=== PATIENT | male | born 1940 | race Caucasian/White ===

== ENCOUNTER → 2016-10-13 | Day surgery (SDC) | payer MEDICARE, BC ==
--- NOTE | 2016-10-09 16:06 | Pre-Procedure Note/Attestation ---
Pre-Procedure Note/Attestation Complete Prior to Procedure Planned Procedure: right Procedure Narrative: 1.CATARACT EXTRACTION WITH PHACO AND PC IOL IMPLANTATION, RIGHT EYE. 2.LIMBAL RELAXING INCISION (LRI), RIGHT EYE. I Indications for Procedure Pre-Operative Diagnosis: 1. CATARACT, RIGHT EYE. 2.ASTIGMATISM, RIGHT EYE. Attestation I attest that I discussed the nature of the procedure; its benefits; risks and complications; and alternatives (and the risks and benefits of such alternatives ), prior to the procedure, with the patient (or the patient's legal telemarketing representative). I attest that, if there was a reasonable possibility of needing a blood transfusion, the patient (or the patient's legal telemarketing representative) was given the [place] Department of Health Services standardized written summary, pursuant to the Lino Aubrey Blood Safety Act ([place] Health and Safety Code # 1645, as amended). I attest that I re-evaluated the patient just prior to the surgery and that there has been no change in the patient's H&P, except as documented below: MINH BRIAN Oct 09, 2016 16:06
[2016-10-13] VITALS (8 sets, daily range): BP systolic 102–128; BP diastolic 53–74
[~2016-10-13] VITALS: Ht 172.7 cm; Wt 68.0 kg
[~2016-10-13] MED LIST: ASPIRIN81 MG ORAL; Akten 3.5% 1ml Btl ONE; BONIVA150 MG ORAL; BSS 15ml BTL ONE; BSS 500ml btl ONE; CRESTOR10 M2 ORAL; Carbachol 0.01% Op Soln 1.5ml vial ONE; Dexamethasone 4mg/ml vial ONE; Diclofenac Sod 0.1% Op Soln ONE; DiphenhydrAMINE 50mg/ml Inj IVP PRN; EPINEPHrine 1mg/1ml Amp ONE; Gatifloxacin Opth Solution 0.5% ONE; LR 1000ml 1,000 ML IVLG SCH; LR 1000ml ONE; Lidocaine 1% MPF 10mg/ml 5ml ONE; Midazolam 2mg/2ml Inj ONE; NS Irrig 1000ml ONE; Phenylephrine 10% Opth Soln 5ml ONE; Povidone-Iodine 5% opth solution ONE; Propofol 10mg/ml 20ml IV ONE; Sodium Hyaluronate 10 mg/ml 0.85ml ONE; Sterile Water Irrig 1000ml IRRIG ONE; Tetracaine 0.5% Opth Soln ONE; Tropicamide 1% Opth Soln ONE; acetaZOLAMIDE 125mg tab ORAL ONE; fentaNYL 100 mcg/2 mL IV ONE; fentaNYL 100 mcg/2 mL IV PRN
[2016-10-13] MEDS: Tropicamide 1% Opth Soln RIGHT EYE SCH ×3 (06:52→07:11)
[2016-10-13] MEDS: Akten 3.5% 1ml Btl RIGHT EYE SCH ×3 (06:52→07:10)
[2016-10-13] MEDS: Diclofenac Sod 0.1% Op Soln RIGHT EYE SCH ×3 (06:52→07:10)
[2016-10-13] MEDS: Phenylephrine 10% Opth Soln 5ml RIGHT EYE SCH ×3 (06:53→07:11)
[2016-10-13] MEDS: Gatifloxacin Opth Solution 0.5% RIGHT EYE SCH ×3 (06:53→07:11)
--- NOTE | 2016-10-13 08:43 | Anethesia Preoperative Eval ---
Anesthesia Pre-op PMH/ROS General Date of Evaluation: Oct 13, 2016 Time of Evaluation: 08:22 Anesthesiologist: Ramón ASA Score: ASA 2 Mallampati Score Class I : Soft palate, uvula, fauces, pillars visible Class II: Soft palate, uvula, fauces visible Class III: Soft palate, base of uvula visible Class IV: Only hard plate visible Mallampati Classification: Class II Surgeon: Bell Diagnosis: R eye cataract Surgical Procedure: R eye cataractextraction Anesthesia History: none Family History: no anesthesia problems Allergies: Coded Allergies: No Known Allergies (Unverified , 10/09/16) Medications: see eMAR Past Medical History Cardiovascular: Reports: HTN - mild, Denies: CAD, [place], arrhythmia, other, valve dz Pulmonary: Denies: COPD, CHAR, asthma, other Gastrointestinal/Genitourinary: Reports: GERD, Denies: CRI, ESRD, other Neurologic/Psychiatric: Denies: CVA, TIA, dementia, depression/anxiety, other Endocrine: Denies: DM, hypothyroidism, other, steroids HEENT: Reports: cataract (L), cataract (R) Hematology/Immune: Denies: DVT, anemia, bleeding disorder, other Musculoskeletal/Integumentary: Denies: DDD, DJD, OA, RA, edema, other PMH Narrative: as above PSxH Narrative: nne Anesthesia Pre-op Phys. Exam Physician Exam Last Vital Signs Date Time Temp Pulse Resp B/P Pulse Ox O2 Delivery O2 Flow Rate FiO2 10/13/16 07:06 98.1 66 20 128/74 99 Room Air Constitutional: NAD Neurologic: CN 2-12 intact Cardiovascular: RRR, no M/R/G Respiratory: CTA Gastrointestinal: S/NT/ND Airway Exam Mallampati Score: Class II MO: limited Neck: stiff ROM: limited Teeth: missing Dentures: no lower, no upper Anesthesia Pre-op A/P Labs see chart Studies Pre-op Studies: EKG - NSR Risk Assessment & Plan Assessment: ASA 2 Plan: MAC Status Change Before Surgery: No Pre-Antibiotics Drug: none REMBERTO WILLS M.D. Oct 13, 2016 08:43
--- NOTE | 2016-10-13 09:10 | Brief Operative Note ---
Immediate Post Operative Note Operative Note Chief Complaint: Blurry vision, right eye, difficulty driving and reading, right eye Pre-op Diagnosis: 1. CATARACT, RIGHT EYE. 2.ASTIGMATISM, RIGHT EYE. Procedure: 1- Cataract extraction with phaco and PC IOL implantation, right eye 2- Limbal relaxing incision, right eye Post-op Diagnosis: same as pre-op Surgeon: Minh Luu MD Carburetor Rebuilder: None Additional Surgeons: None Anesthesiologist: Dr. barone Anesthesia: MAC Specimen: none Complications: none Condition: stable Estimated Blood Loss: none Drains: none Implant(s) used?: Yes - Monofocal PC IOL implanted in the right eye without complication MINH LUU Oct 13, 2016 09:10
--- NOTE | 2016-10-13 09:53 | Immediate Post-Op Evaluation ---
Immediate Post-Op Evalulation Immediate Post-Op Evalulation Procedure: R eye cataract extraction wit IOL Date of Evaluation: Oct 13, 2016 Time of Evaluation: 09:08 IV Fluids: 300 Blood Products: none Estimated Blood Loss: none Urinary Output: none Blood Pressure Systolic: 108 Blood Pressure Diastolic: 58 Pulse Rate: 62 Respiratory Rate: 20 O2 Sat by Pulse Oximetry: 99 Temperature (Fahrenheit): 97.4 Pain Score (1-10): 1 Nausea: No Vomiting: No Complications none Patient Status: awake, patent, none Hydration Status: adequate REMBERTO WILLS M.D. Oct 13, 2016 09:53
--- NOTE | 2016-10-13 09:54 | 48 Hour Post Anesthesia Eval ---
Post Anesthesia Evaluation Procedure: R eye cataract extraction wit IOL Date of Evaluation: Oct 13, 2016 Time of Evaluation: 09:53 Blood Pressure Systolic: 112 0: 72 Pulse Rate: 68 Respiratory Rate: 20 Temperature (Fahrenheit): 97.6 O2 Sat by Pulse Oximetry: 98 Airway: patent Nausea: No Vomiting: No Pain Intensity: 1 Hydration Status: adequate Cardiopulmonary Status: stable Mental Status/LOC: patient returned to baseline Follow-up Care/Observations: n/a Post-Anesthesia Complications: none Follow-up care needed: ready to discharge REMBERTO WILLS M.D. Oct 13, 2016 09:54
--- NOTE | 2016-10-14 00:27 | Operative Note - Dictated ---
DATE OF OPERATION: 10/13/2016 FACILITY: [facility]. SURGEON: Yong Luu M.D. GMAT INSTRUCTOR: None. ANESTHESIOLOGIST: Pankaj Melgar M.D. ANESTHESIA: Monitored anesthesia care (MAC). PREOPERATIVE DIAGNOSES: 1. Cataract, right eye. 2. Astigmatism in the right eye. POSTOPERATIVE DIAGNOSES: 1. Cataract, right eye. 2. Astigmatism in the right eye. SURGERY PERFORMED: 1. Cataract extraction with phacoemulsification of the posterior chamber intraocular lens implantation in the right eye. 2. Limbal relaxing incision (LRI). INDICATION FOR SURGERY AND FINDINGS: The patient is a 75-year-old gentleman with history of osteoarthritis, otherwise he does not have any allergy to medications. He is not allergic to medications. He is taking one naproxen for . He is complaining of blurred vision in the right eye. On examination of the right eye, the cornea is clear, anterior chamber is clean and quiet, pupillary reflexes normal, and there is no RAPD. There is 4+ nuclear sclerosis and 2+ cortical cataract. The funduscopy shows normal macula, normal optic disc, and periphery retina is within normal limits. To improve the vision in the right eye, the cataract has to be removed and posterior chamber intraocular lens has to be implanted. Astigmatism has to addressed with limbal relaxing incision. INFORMED CONSENT: The nature of the surgery, risks, benefits, alternatives, and potential complications were explained in detail to the patient in her language, Farsi. Therefore, the potential complications including, but not limited to bleeding, infection, posterior capsular rupture, lens subluxation, flat anterior chamber, iris prolapse, corneal edema, macular edema, wound leak, retinal detachment, endophthalmitis, uveitis, loss of vision, and even loss of the left eye were all explained in detail to the patient. The patient voiced understanding and accepted all the complications. The alternatives including accommodating lenses, multifocal lenses, toric lens, and conventional cataract surgery with limbal relaxing incision for treatment of astigmatism were all explained in detail to the patient. The patient voiced understanding. Then, he signed the consent form, which is in the chart. DESCRIPTION OF SURGERY AND FINDINGS: Following that, the patient was taken to the operation room in a stable condition. Lidocaine gel Akten 3.5% were applied to the conjunctiva of the right eye. Intravenous sedation was given by the anesthesiologist, Dr. Melgar. After adequate anesthesia and sedation had been achieved, the right eye was prepped and draped in the sterile fashion for intraocular surgery. Following that, a speculum was placed in the right eye. Before the patient was taken to the operation room, the eye was marked at 180 and 90 meridian. In the operation room, using a corneal marker and a marking pen, the steep meridian of the cornea was marked. Following that, using a bobby knife with 600 micron blade, two parallel incisions were made on the steep meridian of the cornea to treat the astigmatism. Following that, using a Super Sharp knife, a clear corneal side port was created. A 1% lidocaine without preservative (MPF) was injected into the anterior chamber. The viscoelastic agent, Healon was injected into the anterior chamber as well. Following that, a clear corneal temporal keratotomy was performed using a 2.8 mm keratome. Following that, Vision Blue was injected under the viscoelastic agent to stain the anterior capsule of the lens. Following that, clear fresh viscoelastic agent, Healon was injected into the anterior chamber again. Under the fresh clear viscoelastic agent, an anterior capsulotomy was performed in the fashion of capsulorrhexis beautifully. Following that, the whole viscoelastic agent was removed from the anterior chamber. Following that, using balanced salt solution, hydrodissection and hydrodelineation was performed and the nucleus was freed. Following that, the clear fresh viscoelastic agent was injected into the anterior chamber to protect the endothelium of the cornea. Following that, using the phacoemulsification machine in the fashion of horizontal chop, the nucleus was removed in toto. Following that, using irrigation and aspiration unit, cortical material was removed from the capsular bag and the capsular bag was polished. Following that, the capsular bag was filled with viscoelastic agent, Healon. Following that, the +21.5 diopter ZCB00 foldable PCIOL with serial number [id number] injected into the capsular bag. Using a Sinskey hook, the lens was manipulated within the proper position. Following that, the viscoelastic agent was removed from the anterior and posterior part of the lens. Following that, the anterior chamber was filled with balanced salt solution and the wound was hydrated with balanced salt solution. The wound was checked for leakage and there was no leakage. Vigamox eye drops were applied to the conjunctiva of the right eye. The patient tolerated the surgery without complications. At the end of the surgery, the eye was patched with a clear sterile fenestrated shield. Following that, the patient was transferred to the recovery room. In the recovery room, 125 mg of Diamox was given by mouth stat. Postoperative orders and directions were given to the patient. The patient will be discharged home upon stabilization. The patient will be followed in my office tomorrow morning at 9 a. Yong Luu M.D. DR: JODIE JOB#: [id number] CC:
--- NOTE | 2016-10-14 01:17 | Discharge Summary ---
DATE OF ADMISSION: 10/13/2016 DATE OF DISCHARGE: 10/13/2016 REASON FOR HOSPITALIZATION: 1. Cataract right eye. 2. Astigmatism, right eye. SURGERY PERFORMED: 1. Cataract extraction with phacoemulsification and posterior chamber intraocular lens implantation in the right eye. 2. Limbal relaxing incision (LRI) in the right eye. The patient's condition in the hospital, the patient tolerated the surgery without complications. DISCHARGE CONDITION: The patient was stable at discharge. DISCHARGE MEDICATIONS: 1. Prednisolone 1% q.i.d., right eye. 2. Vigamox eye drops one drop q.i.d., right eye. 3. Ilevro eye drops one drop q.i.d., right eye. POSTOPERATIVE ORDERS: The patient has to rest at home, no bending, no lifting. No watching TV tonight. POSTOPERATIVE FOLLOWUP: The patient will be followed in my office tomorrow morning at 9 a.m[address] Yong Luu M.D. DR: JODIE JOB#: [id number] CC:
== END | disposition home or self-care (01) ==
LOC: SUR 06:13
DX: H25.11 Age-related nuclear cataract, right eye (principal); H25.011 Cortical age-related cataract, right eye; H52.201 Unspecified astigmatism, right eye; I10 Essential (primary) hypertension; K21.9 Gastro-esophageal reflux disease without esophagitis; M19.90 Unspecified osteoarthritis, unspecified site
CPT/HCPCS: 66984; 66999; J0171; J1100; J2250; J2704; J3010; J7120; V2632; 94003; 94150

== ENCOUNTER → 2016-10-27 | Day surgery (SDC) | payer MEDICARE, BC ==
--- NOTE | 2016-10-23 14:35 | Pre-Procedure Note/Attestation ---
Pre-Procedure Note/Attestation Complete Prior to Procedure Planned Procedure: left Procedure Narrative: 1.CATARACT EXTRACTION WITH PHACO AND PC IOL IMPLANTATION, LEFT EYE. 2.LIMBAL RELAXING INCISION (LRI), LEFT EYE. I Indications for Procedure Pre-Operative Diagnosis: 1. CATARACT, LEFT EYE. 2.ASTIGMATISM, LEFT EYE. Attestation I attest that I discussed the nature of the procedure; its benefits; risks and complications; and alternatives (and the risks and benefits of such alternatives ), prior to the procedure, with the patient (or the patient's legal call center support representative). I attest that, if there was a reasonable possibility of needing a blood transfusion, the patient (or the patient's legal call center support representative) was given the [place] Department of Health Services standardized written summary, pursuant to the Lino Aubrey Blood Safety Act ([place] Health and Safety Code # 1645, as amended). I attest that I re-evaluated the patient just prior to the surgery and that there has been no change in the patient's H&P, except as documented below: MINH BRIAN Oct 23, 2016 14:35
[2016-10-27] VITALS (10 sets, daily range): BP systolic 107–139; BP diastolic 53–75
[~2016-10-27] VITALS: Ht 177.8 cm; Wt 61.2 kg
[~2016-10-27] MED LIST changes: -Carbachol 0.01% Op Soln 1.5ml vial ONE; +DiphenhydrAMINE 50mg/ml Inj ONE; +Labetalol 5mg/ml 20ml vial IV PRN; -Propofol 10mg/ml 20ml IV ONE; -Tetracaine 0.5% Opth Soln ONE; -fentaNYL 100 mcg/2 mL IV PRN
[2016-10-27] MEDS: Akten 3.5% 1ml Btl LEFT EYE SCH ×3 (06:16→06:29)
[2016-10-27] MEDS: Phenylephrine 10% Opth Soln 5ml LEFT EYE SCH ×3 (06:16→06:29)
[2016-10-27] MEDS: Tropicamide 1% Opth Soln LEFT EYE SCH ×3 (06:16→06:29)
[2016-10-27] MEDS: Diclofenac Sod 0.1% Op Soln LEFT EYE SCH ×3 (06:16→06:29)
[2016-10-27] MEDS: Gatifloxacin Opth Solution 0.5% LEFT EYE SCH ×3 (06:16→06:29)
--- NOTE | 2016-10-27 07:26 | Anethesia Preoperative Eval ---
Anesthesia Pre-op PMH/ROS General Date of Evaluation: Oct 27, 2016 Anesthesiologist: Rashawn ASA Score: ASA 2 Mallampati Score Class I : Soft palate, uvula, fauces, pillars visible Class II: Soft palate, uvula, fauces visible Class III: Soft palate, base of uvula visible Class IV: Only hard plate visible Mallampati Classification: Class II Surgeon: Bell Diagnosis: Left cataract Surgical Procedure: Left cataract extraction with IOL Anesthesia History: none Family History: no anesthesia problems Allergies: Coded Allergies: No Known Allergies (Unverified , 10/09/16) Medications: see eMAR Past Medical History Cardiovascular: Reports: HTN, Denies: CAD, [place], arrhythmia, other, valve dz Pulmonary: Denies: COPD, CHAR, asthma, other Gastrointestinal/Genitourinary: Reports: GERD, Denies: CRI, ESRD, other Neurologic/Psychiatric: Denies: CVA, TIA, dementia, depression/anxiety, other Endocrine: Denies: DM, hypothyroidism, other, steroids HEENT: Denies: [place] (L), [place] (R), cataract (L), cataract (R), glaucoma, other Hematology/Immune: Denies: DVT, anemia, bleeding disorder, other Musculoskeletal/Integumentary: Denies: DDD, DJD, OA, RA, edema, other PSxH Narrative: right cataract Anesthesia Pre-op Phys. Exam Physician Exam Last Vital Signs Date Time Temp Pulse Resp B/P Pulse Ox O2 Delivery O2 Flow Rate FiO2 10/27/16 06:25 98.1 66 18 136/65 99 Room Air Constitutional: NAD Cardiovascular: RRR Respiratory: CTA Airway Exam Mallampati Score: Class II Anesthesia Pre-op A/P Labs see chart Studies Pre-op Studies: EKG - sr Risk Assessment & Plan Assessment: ASA II Plan: MAC Status Change Before Surgery: No Pre-Antibiotics Drug: N/A SARKIS LATHAM M.D. Oct 27, 2016 07:26
--- NOTE | 2016-10-27 08:07 | Immediate Post-Op Evaluation ---
Immediate Post-Op Evalulation Immediate Post-Op Evalulation Procedure: Left cataract extraction with IOL Date of Evaluation: Oct 27, 2016 Time of Evaluation: 08:32 IV Fluids: 300 Blood Products: 0 Estimated Blood Loss: 0 Urinary Output: 0 Blood Pressure Systolic: 124 Blood Pressure Diastolic: 65 Pulse Rate: 54 Respiratory Rate: 16 O2 Sat by Pulse Oximetry: 100 Temperature (Fahrenheit): 97.6 Pain Score (1-10): 0 Nausea: No Vomiting: No Complications 0 Patient Status: awake, reacts, patent, none Hydration Status: adequate Drug: N/A SARKIS LATHAM M.D. Oct 27, 2016 08:07
--- NOTE | 2016-10-27 08:07 | 48 Hour Post Anesthesia Eval ---
Post Anesthesia Evaluation Procedure: Left cataract extraction with IOL Date of Evaluation: Oct 27, 2016 Blood Pressure Systolic: 129 0: 69 Pulse Rate: 56 Respiratory Rate: 16 O2 Sat by Pulse Oximetry: 100 Airway: patent Nausea: No Vomiting: No Pain Intensity: 0 Hydration Status: adequate Cardiopulmonary Status: at baseline Mental Status/LOC: patient returned to baseline Post-Anesthesia Complications: 0 Follow-up care needed: ready to discharge SARKIS LATHAM M.D. Oct 27, 2016 08:07
--- NOTE | 2016-10-27 08:17 | Pre-op HX & Phy Repo 2 SIG ---
DATE OF ADMISSION: 10/27/2016 PRESURGICAL INTERNAL MEDICINE HISTORY AND PHYSICAL REASON FOR EVALUATION: I was asked by Dr. Yong Luu to see this 75-year-old male, who is going for elective surgery on the left eye. The patient has a cataract left eye. Please see full Ophthalmology description History and Physical by Dr. Yong Luu. The patient was examined and chart was reviewed. PAST MEDICAL HISTORY/REVIEW OF SYSTEMS: Remarkable for osteoporosis. Denies history of chest pain, palpitation or heart attack. No history of hypertension. No history of stroke or seizures. No history of hypertension or diabetes. No renal failure. No GI problem. No thyroid problem. PAST SURGICAL HISTORY: None. MEDICATIONS: Present medications include Boniva monthly, calcium supplement, vitamin D3 and baby aspirin. ALLERGIES: Not known. HABITS: Denies tobacco or alcohol use. No street drugs. FAMILY HISTORY: Both parents from old age. PHYSICAL EXAMINATION: GENERAL: Alert, well-developed, well-nourished male in his 70s. No acute distress. VITAL SIGNS: Blood pressure 136/65, temperature 98.1 degrees, pulse 66, respiration 18, and O2 saturation 99% on room air. SKIN: Warm and dry. No rashes. No diaphoresis. LYMPHATICS: Lymph nodes not enlarged. HEENT: Head: Normocephalic and atraumatic. Nose: Clear. No discharge. Mouth: Clear and moist. No dentures. Ear: No discharge. No hearing impairment. Eyes, full description per Dr. Yong Luu. NECK: Supple. No jugular vein distention. Carotids artery +2. Trachea midline. CHEST: No deformity or asymmetry. LUNGS: Clear. No rales or rhonchi. HEART: Sinus rhythm. Regular rate. ectopy. No murmur. ABDOMEN: Soft and benign. No palpable mass. No rebound. No organomegaly. EXTREMITIES: No edema. No deformity. No varicose vein. GENITOURINARY TRACT: Normal for gender. CVA nontender. No dysuria. NEUROLOGIC: No tremor. No nystagmus. No asymmetry. LABORATORY AND DIAGNOSTIC DATA: ECG dated 10/09/2016 showed normal sinus rhythm, 63 per minute, intraventricular conduction delay. Laboratory, hemoglobin 14.3 and hematocrit 44.3. BUN 22, creatinine 0.9, and blood sugar 93 mg/dL. IMPRESSION: 1. Cataract to the left eye. 2. Osteoporosis. 3. Interventricular conduction delay by EKG. PLAN: Cataract extraction, left eye with intraocular lens implant per Dr. Yong Luu. CONCLUSION: The patient is a 75-year-old male. Vital signs stable. ECG shows borderline abnormalities, interventricular conduction delay. Laboratory work in normal limits. The patient did not eat or drink from last night. The patient's condition optimized for surgery. Thank you very much, Dr. Luu, for privilege to participate in presurgical care of this interesting patient. Jefferson Faith M.D. DR: Litzy JOB#: [id number] CC:
--- NOTE | 2016-10-27 08:34 | Brief Operative Note ---
Immediate Post Operative Note Operative Note Chief Complaint: Blurry vision, left eye. Difficulty driving and reading, left eye. Pre-op Diagnosis: 1. CATARACT, LEFT EYE. 2.ASTIGMATISM, LEFT EYE. Procedure: 1- Cataract extraction with phaco and PC IOL implantation, left eye 2- Limbal Relaxing incision ( LRI ), left eye Post-op Diagnosis: same as pre-op Surgeon: Minh Luu MD. Rig Hand: None Additional Surgeons: None Anesthesiologist: Dr. Kat Anesthesia: MAC Specimen: none Complications: none Condition: stable Estimated Blood Loss: none Drains: none Implant(s) used?: Yes - Monofocal PC IOL implanted in the left eye without complication, MINH LUU Oct 27, 2016 08:34
--- NOTE | 2016-10-27 21:47 | Discharge Summary ---
DATE OF ADMISSION: 10/27/2016 DATE OF DISCHARGE: 10/27/2016 REASON FOR HOSPITALIZATION: 1. Cataract, left eye. 2. Astigmatism, left eye. SURGERY PERFORMED: 1. Cataract extraction with phacoemulsification and posterior chamber intraocular lens implantation in the left eye. 2. Limbal relaxing incision (LRI) in the left eye. CONDITION IN THE HOSPITAL: The patient tolerated the surgery without complications. DISCHARGE CONDITION: The patient was stable at discharge. DISCHARGE MEDICATIONS: 1. Prednisolone 1% q.i.d., left eye. 2. Vigamox eye drops one drop q.i.d., left eye. 3. Ilevro eye drops one drop daily once a day, left eye. POSTOPERATIVE ORDERS: The patient has to rest at home. No bending. No lifting. No watching TV tonight. POSTOPERATIVE FOLLOWUP: The patient will be followed in my office tomorrow morning. Yong Luu M.D. DR: WILLEM JOB#: [id number] CC:
--- NOTE | 2016-10-27 21:47 | Operative Note - Dictated ---
DATE OF OPERATION: 10/27/2016 FACILITY: [facility]. SURGEON: Yong Luu M.D. VOLUNTEER SERVICES DIRECTOR: None. ANESTHESIOLOGIST: Dr. Kat. ANESTHESIA: Monitored anesthesia care (MAC). PREOPERATIVE DIAGNOSES: 1. Cataract, left eye. 2. Astigmatism in the left eye. POSTOPERATIVE DIAGNOSES: 1. Cataract, left eye. 2. Astigmatism in the left eye. SURGERY PERFORMED: 1. Cataract extraction with phacoemulsification and posterior chamber intraocular lens implantation in the left eye. 2. Limbal relaxing incision (LRI). INDICATION FOR SURGERY AND FINDINGS: The patient is 75-year-old gentleman with history of osteoarthritis, otherwise he is healthy. He is not allergic to any medication. He is taking only Naproxen one tablet a day to osteoarthritis. He had cataract surgery two weeks ago and he is very happy with the result. Now, he is complaining of blurred vision in the left eye. On examination of the left eye, the cornea is clear, anterior chamber is clean and quiet, pupillary reflexes normal, and there is no RAPD. There is 3+ nuclear sclerosis and 2+ cortical cataract in the right eye. The funduscopy shows normal macula, normal optic disc, and periphery retina is within normal limits. To improve his vision in the left eye, the cataract has to be removed and posterior chamber intraocular lens has to be implanted. Astigmatism has to be addressed with limbal relaxing incision. INFORMED CONSENT: The nature of the surgery, risks, benefits, alternatives, and potential complications were explained in detail to the patient in his language, Farsi. Therefore, the potential complications including, but not limited to bleeding, infection, posterior capsular rupture, lens subluxation, a flat anterior chamber, iris prolapse, corneal edema, macular edema, wound leak, retinal detachment, endophthalmitis, uveitis, loss of vision, and even loss of the eye were all explained in detail to the patient in her language, Farsi. The patient voiced understanding and accepted all the complications. The alternatives including accommodating lenses, multifocal lenses, toric lens, and conventional cataract surgery with limbal relaxing treatment for treatment of astigmatism were all explained in detail to the patient. The patient voiced understanding. Then, he signed a consent form, which is in the chart. DESCRIPTION OF SURGERY AND FINDINGS: Following that, the patient was taken to the operation room in a stable condition. Lidocaine gel Akten 3.5% were applied to the conjunctiva of the left eye. IV sedation was given by the anesthesiologist, Dr. Kat. After adequate anesthesia and sedation had been achieved, the left eye was prepped and draped in sterile fashion for intraocular surgery. Following that, a speculum was placed in the left eye. Before the patient was taken to the operation room, the eye was marked at 180 and 90 meridian. In the operation room, using a corneal marker and marking pen, the steep meridian of the cornea was marked. Following that, using a bobby knife with 600 micron blade, two parallel incisions were made on the steep meridian of the cornea for treatment of astigmatism. Following that, using a Super Sharp knife, a clear corneal side port was created. A 1% lidocaine without preservative (MPF) was injected into the anterior chamber. The viscoelastic agent, Healon was injected into the anterior chamber as well. Following that, a clear corneal temporal keratotomy was performed using a 2.8 mm keratome. Following that, Vision Blue was injected under the viscoelastic agent to stain the anterior capsule of the lens. Following that, clear fresh viscoelastic agent, Healon was injected into the anterior chamber again. Under the fresh clear viscoelastic agent, an anterior capsulotomy was performed in the fashion of capsulorrhexis beautifully. Following that, the whole viscoelastic agent was removed from the anterior chamber. Following that, using balanced salt solution, hydrodissection and hydrodelineation was performed and the nucleus was freed. Following that, a clear fresh viscoelastic agent was injected into the anterior chamber to protect the endothelium of the cornea. Following that, using the phacoemulsification machine in the fashion of horizontal chop, the nucleus was removed in toto. Following that, using irrigation and aspiration unit, cortical material was removed from the capsular bag and the capsular bag was polished. Following that, the capsular bag was filled with viscoelastic agent, Healon. Following that, a +21 diopter ZCB00 foldable PC IOL with serial number [id number] was injected into the capsular bag. Using a Sinskey hook, the lens was manipulated within the proper position. Following that, the viscoelastic agent was removed from the anterior and posterior part of the lens. Following that, the anterior chamber was filled with balanced salt solution and the wound was hydrated with balanced salt solution. The wound was checked for leakage and there was no leakage. Vigamox eye drops were applied to the conjunctiva of the left eye. The patient tolerated the surgery without complications. At the end of the surgery, the eye was patched with a clear sterile fenestrated shield. Following that, the patient was transferred to the recovery room. In the recovery room, 125 mg of Diamox was given by mouth stat. Postoperative orders and directions were given to the patient. The patient will be discharged home upon stabilization. The patient will be followed in my office tomorrow morning at 9 a.m. Yong Luu M.D. DR: WILLEM JOB#: [id number] CC:
== END | disposition home or self-care (01) ==
LOC: SUR 05:57
DX: H25.12 Age-related nuclear cataract, left eye (principal); H25.012 Cortical age-related cataract, left eye; H52.202 Unspecified astigmatism, left eye; I10 Essential (primary) hypertension; K21.9 Gastro-esophageal reflux disease without esophagitis; I45.89 Other specified conduction disorders; M81.0 Age-related osteoporosis without current pathological fracture
CPT/HCPCS: 66984; 66999; J0171; J1100; J1200; J2250; J3010; J7120; V2632; 94003; 94150